=== PATIENT | female | born 1955 | race Caucasian/White ===

== ENCOUNTER 2022-06-14 10:29 | Outpatient (CLI) | payer BC | END 2022-06-14 10:30 | disposition home or self-care (01) | LOC: CSHMAMMO 10:29 | PROVIDERS: ATTEND Internal Medicine | DX: Z12.31 Encounter for screening mammogram for malignant neoplasm of breast (principal); Z78.0 Asymptomatic menopausal state; M85.80 Other specified disorders of bone density and structure, unspecified site | CPT/HCPCS: 77063; 77067; 77080 ==

== ENCOUNTER 2023-07-03 13:06 | Outpatient (CLI) | payer MEDICARE | END 2023-07-03 13:07 | disposition home or self-care (01) | LOC: CSHMAMMO 13:06 | PROVIDERS: ATTEND Internal Medicine | DX: Z12.31 Encounter for screening mammogram for malignant neoplasm of breast (principal); N64.89 Other specified disorders of breast | CPT/HCPCS: 77063; 77067 ==

== ENCOUNTER 2023-07-18 08:22 | Outpatient (CLI) | payer MEDICARE | END 2023-07-18 08:23 | disposition home or self-care (01) | LOC: CSHMAMMO 08:22 | PROVIDERS: ATTEND Internal Medicine | DX: N64.89 Other specified disorders of breast (principal) | CPT/HCPCS: 77065; G0279 ==